=== PATIENT | male | born 1950 | race Caucasian/White ===

== ENCOUNTER 2018-04-03 20:23 | Emergency (ER) | payer BC, MEDICARE ==
[~2018-04-03] VITALS: Ht 182.9 cm; Wt 106.6 kg
[2018-04-03 20:45] VITALS: BP 152/88
[2018-04-03 21:20] LABS: Basophils # (auto) 0 uL; Basophils % (auto) 0.8 % (0.0-2.0); Eosinophils # (auto) 0 uL; Hemoglobin 14.3 g/dL (13.5-17.5); Lymphocytes # (auto) 2.4 uL; Lymphocytes % (auto) 38.2 % (10.0-50.0); Mean Corpuscular Hemoglobin 29.1 pg (28.0-32.0); Mean Corpuscular Hgb Conc. 33.2 g/dL (32.0-36.0); Mean Corpuscular Volume 87.6 fL (80.0-100.0); Monocytes # (auto) 0.6 uL; Monocytes % (auto) 9.3 % (0.0-12.0); Neutrophils # (auto) 3.2 uL; Neutrophils % (auto) 51.7 % (37.0-80.0); Nucleated Red Blood Cells % 0.1 %; Platelet Count (auto) 279 10^3/uL (140-450); Red Blood Cells 4.91 10^6/uL (4.5-5.90); Red Cell Distribution Width 16.7 % (11.8-14.3); White Blood Cell 6.2 10^3/uL (4.4-10.8)
[2018-04-03 21:36] LABS: Albumin 3.5 g/dL (3.4-5.0); BUN/Creatinine Ratio 14.3; Calcium 9.1 mg/dL (8.5-10.1); Potassium 4.9 mmol/L (3.5-5.1)
[2018-04-03 21:39] LABS: Bilirubin, Total 0.2 mg/dL (0.2-1.0); Total Protein 7.7 g/dL (6.4-8.2)
== END 2018-04-04 | disposition left against medical advice (07) ==
LOC: ER 20:23
DX: R79.9 Abnormal finding of blood chemistry, unspecified (principal); Z53.21 Procedure and treatment not carried out due to patient leaving prior to being seen by health care provider
CPT/HCPCS: 36415; 80053; 85025